=== PATIENT | male | born 1960 | race Caucasian/White ===

== ENCOUNTER 2023-02-11 06:25 | Day surgery (SDC) | payer BC ==
[~2023-02-11] VITALS: Ht 177.8 cm; Wt 68.7 kg
[~2023-02-11 06:25] MED LIST: PRILOSEC OTC20 MG PO
[2023-02-11 06:43] VITALS: BP 122/86
[2023-02-11 09:02] VITALS: BP 103/66
--- NOTE | 2023-02-11 10:23 | OR ---
[facility] [address], [place] [address] Signed DATE OF OPERATION: 02/11/2023 SURGEON: Boubacar Mcpherson MD PREOPERATIVE DIAGNOSIS: Screening. POSTOPERATIVE DIAGNOSES: 1. Single small diverticulum at the hepatic flexure. 2. Minimal internal hemorrhoids. 3. Single small internal anal skin tag. PROCEDURE: Colonoscopy without biopsy. ESTIMATED BLOOD LOSS: None. INDICATIONS: Harry is a 62-year-old gentleman, asked to see me for his initial screening colonoscopy. He said he has no lower GI complaints. There is no family history of colon cancer or polyps. He reminded me that he helped his with the colonoscopy several years ago. Consequently, he is familiar with this process. In the office, I gave him a pamphlet on colonoscopy. He understands the nature of the test. There is risk including, but not limited to gas bloating, crampy abdominal pain, bleeding, perforation requiring surgery, and missed diagnosis. We also reviewed the need for IV conscious sedation. He had expressed understanding and wished to proceed. PROCEDURE NOTE: Harry was taken into our endoscopy suite and placed in the left lateral decubitus position. He was given IV sedation with 5 mg of Versed and 100 mcg of fentanyl. A digital rectal exam was performed and this was unremarkable. He has no external hemorrhoids. He had good sphincter tone. His prostate is indurated and moderately enlarged. The adult colonoscope had been introduced and advanced all around into the cecum under direct visualization of the camera without difficulty. His prep was quite excellent. We could easily see the appendiceal orifice and the ileocecal valve. The scope was then slowly withdrawn. We took pictures throughout for photodocumentation. We saw a single small diverticulum as we came around the hepatic flexure. There were no polyps. The rectum was unremarkable. Upon retroflexion of the scope, he has minimal internal hemorrhoid tissue. There is a single small internal anal skin tag. After Electronically Signed By: BOUBACAR MCPHERSON MD 02/11/23 1023 PATIENT NAME: HARRY PUGHN OPERATIVE REPORT DATE OF : 58 REPORT #: [id number] PHYSICIAN: BOUBACAR MCPHERSON MD PCP: LINDY FLORES PA-C REPORT IS CONFIDENTIAL AND NOT TO BE RELEASED WITHOUT AUTHORIZATION [facility] [address] [place] [id number] Signed this, the gas was suctioned out and the colonoscope removed. Harry tolerated the procedure quite well. RECOMMENDATIONS: Harry can follow up in 10 years for repeat screening colonoscopy. MD JAIR Valadez/SHITALL /[id number] cc: Boubacar Mcpherson MD Copies: BOUBACAR MCPHERSON MD ~ Electronically Signed By: BOUBACAR MCPHERSON MD 02/11/23 1023 PATIENT NAME: HARRY PUGH ELVIS OPERATIVE REPORT DATE OF : 58 REPORT #: [id number] PHYSICIAN: BOUBACAR MCPHERSON MD PCP: LINDY FLORES PA-C REPORT IS CONFIDENTIAL AND NOT TO BE RELEASED WITHOUT AUTHORIZATION
== END 2023-02-11 09:15 | disposition home or self-care (01) ==
LOC: DS 06:25 → OPS 06:25 → DS 07:30 → OPS 09:15
PROVIDERS: ATTEND Colon & Rectal Surgery
DX: Z12.11 Encounter for screening for malignant neoplasm of colon (principal); K57.30 Diverticulosis of large intestine without perforation or abscess without bleeding; K64.8 Other hemorrhoids; K64.4 Residual hemorrhoidal skin tags; M35.3 Polymyalgia rheumatica; M19.90 Unspecified osteoarthritis, unspecified site; R00.2 Palpitations; Z79.899 Other long term (current) drug therapy
CPT/HCPCS: G0121; 99153; G0500; J2250; J3010; J7121